=== PATIENT | female | born 1990 | race Two or more races ===

== ENCOUNTER 2016-09-21 05:17 | Inpatient (IN) | payer OTHER ==
[~2016-09-21] VITALS: Ht 154.9 cm; Wt 68.2 kg
[~2016-09-21 05:17] MED LIST: DOCU240C31 PO; IBUP-1222 PO; OXYC-302 PO; PNV1TABL4 PO
[2016-09-21] MEDS ORDERED: D5%-LACTATED RINGERS 1,000 ML IV SCH (05:42)
[2016-09-21] MEDS ORDERED: OXYTOCIN 30U/ 0.9% NaCL 500ML 500 ML IV ONE (05:42)
[2016-09-21] MEDS ORDERED: LACTATED RINGERS 1,000 ML IV SCH (05:42)
[2016-09-21] MEDS ORDERED: CALCIUM CARBONATE 500 MG TAB.CHEW PO PRN (06:00)
[2016-09-21] MEDS ORDERED: ONDANSETRON 2MG/ML, 2ML IVPush PRN (06:00)
[2016-09-21] MEDS ORDERED: FENTANYL PF 100 MCG/2ML IV PRN (06:00)
[2016-09-21] MEDS ORDERED: FENTANYL PF 100 MCG/2ML IVPush PRN (06:00)
[2016-09-21 06:25] VITALS: BP 127/78
[2016-09-21 06:30] LABS: HEMATOCRIT 37.4 % (34.6-47.8); HEMOGLOBIN 12.5 g/dL (11.7-16.4); WHITE BLOOD COUNT 9.9 x10^3/uL (3.4-10)
[2016-09-21] MEDS ORDERED: LIDOCAINE 1%, 20ML ONE (08:58)
[2016-09-21] MEDS ORDERED: MISOPROSTOL 200 MCG TABLET PR PRN (11:30)
[2016-09-21] MEDS ORDERED: METHYLERGONOVINE 0.2 MG/ML IM PRN (11:30)
[2016-09-21] MEDS ORDERED: ACETAMINOPHEN 325 MG TABLET PO PRN (11:30)
[2016-09-21] MEDS ORDERED: OXYcodone/APAP 5/325MG TABLET PO PRN ×2 (11:30)
[2016-09-21] MEDS ORDERED: ONDANSETRON 2MG/ML, 2ML IV PRN (11:30)
[2016-09-21] MEDS ORDERED: METOCLOPRAMIDE 5 MG/ML, 2ML IV PRN (11:30)
[2016-09-21] MEDS ORDERED: GLYCERIN ADULT SUPP PR PRN (11:30)
[2016-09-21] MEDS ORDERED: BISACODYL 10 MG SUPP PR PRN (11:30)
[2016-09-21] MEDS ORDERED: DOCUSATE 100 MG CAPSULE PO PRN (11:30)
[2016-09-21] MEDS ORDERED: IBUPROFEN 600 MG TABLET ONE (12:10)
[2016-09-21] MEDS ORDERED: OXYTOCIN 30U/ 0.9% NaCL 500ML 500 ML ONE (12:11)
[2016-09-21] MEDS: IBUPROFEN 600 MG TABLET PO PRN (12:12)
[2016-09-21] MEDS: OXYTOCIN 30U/ 0.9% NaCL 500ML 500 ML IV SCH ×2 (12:13→21:26)
[2016-09-21 13:30] VITALS: BP 115/65
[2016-09-21 15:50] VITALS: BP 106/56
[2016-09-21 19:10] LABS: HEMATOCRIT 34.8 % (34.6-47.8); HEMOGLOBIN 11.4 g/dL (11.7-16.4); WHITE BLOOD COUNT 10.4 x10^3/uL (3.4-10)
[2016-09-21 21:25] VITALS: BP 105/63
[2016-09-22 00:20] VITALS: BP 120/71
[2016-09-22 04:15] VITALS: BP 114/75
[2016-09-22] MEDS: IBUPROFEN 600 MG TABLET PO PRN (04:23)
[2016-09-22] MEDS ORDERED: DIPH,PERTUSS(ACELL),TET VAC/PF NC IM-VACC ONE (06:00)
[2016-09-22 07:15] VITALS: BP 106/54
[2016-09-22] MEDS: OXYTOCIN 30U/ 0.9% NaCL 500ML 500 ML IV SCH (07:26)
[2016-09-22] MEDS ORDERED: PRENATAL VIT/IRON/FA 1 EACH TABLET PO SCH (09:00)
== END 2016-09-22 12:34 | disposition home or self-care (01) | DRG 775 ==
LOC: LDOP 05:17 → LDIP 05:46 → 2NW 13:15
PROVIDERS: ADMIT Obstetrics & Gynecology; ATTEND Obstetrics & Gynecology
PROC: 10E0XZZ Delivery of Products of Conception, External Approach (ICD-10-PCS; principal; 2016-09-21)
DX: O80 Encounter for full-term uncomplicated delivery (principal); Z37.0 Single live birth; Z3A.37 37 weeks gestation of pregnancy
CPT/HCPCS: 36415; 85025; 86850; 86900; 90715; J2590